=== PATIENT | female | born 1990 | race Caucasian/White ===

== ENCOUNTER 2016-08-26 09:06 | Emergency (ER) | payer MEDICAID ==
--- NOTE | 2016-08-26 11:05 | ER Document Report ---
ED General - General Chief Complaint: Rib Pain Stated Complaint: RIB PAIN Notes: Right rib pain started yesterday. Patient says that she was typing while in bed yesterday. When she finished typing, she sat up and stretched and put both arms up in the air and when she did so she felt a painful pop in the right upper quadrant, right lower rib margins anteriorly. Ever since then, it's been very painful, especially painful to breathe or take a deep breath or sneeze or move. She's never had this happen before. Has not been sick in any other way. No significant cough. No fevers. TRAVEL OUTSIDE OF THE [place] IN LAST 30 DAYS: No COUNTRY TRAVELED TO/FROM: [facility] - Related Data Allergies/Adverse Reactions: Adhesive Bandage * [Adhesive Bandage] Allergy (Unknown, Verified 08/26/16 09:15) sodium hypochlorite solution [Sodium Hypochlorite] Allergy (Unknown, Verified 09:15) Home Medications: Current Home Medications Fluoxetine HCl [Prozac] 10 mg PO DAILY 08/26/16 [History] Past Medical History - Social History Smoking Status: Never Smoker Chew tobacco use (# tins/day): No Frequency of alcohol use: Occasional Drug Abuse: None Family History: Reviewed & Not Pertinent, Other - Does not know family history, raised in foster care Patient has suicidal ideation: No Patient has homicidal ideation: No - Past Medical History Cardiac Medical History: Denies: Hx Coronary Artery Disease Pulmonary Medical History: Reports: Hx Asthma Musculoskeltal Medical History: Reports Hx Musculoskeletal Trauma Psychiatric Medical History: Reports: Hx Anxiety, Hx Depression Traumatic Medical History: Reports: Hx Fractures - Both arms and both legs and left fifth toe Past Surgical History: Reports: Hx Section. Denies: Hx Cholecystectomy - Immunizations Immunizations up to date: Yes Hx Diphtheria, Pertussis, Tetanus Vaccination: Yes - 2011 Hx Pneumococcal Vaccination: 11/05/13 Review of Systems - Review of Systems Notes: REVIEW OF SYSTEMS: CONSTITUTIONAL : Denies fever. EENT: Denies eye, ear, nose or mouth or throat pain or other symptoms. CARDIOVASCULAR: See history of present illness. RESPIRATORY: Denies cough, chest congestion, or shortness of breath. See history of present illness. GASTROINTESTINAL: Denies abdominal pain or nausea, vomiting, or diarrhea. GENITOURINARY: Denies difficulty or painful urinating, urinary frequency, blood in urine. MUSCULOSKELETAL: Denies back or neck pain. Denies joint pain or swelling. SKIN: Denies rash or skin lesions. NEUROLOGICAL: Denies LOC or altered mental status. Denies headache. Denies sensory loss or motor deficits. PSYCHIATRIC: History of anxiety and depression. ALL OTHER SYSTEMS REVIEWED AND NEGATIVE. Physical Exam - Vital signs Vitals: Temp Pulse Resp BP Pulse Ox 98.3 F 103 H 20 129/66 H 97 08/26/16 09:13 08/26/16 09:13 08/26/16 09:13 08/26/16 09:13 08/26/16 09:13 Interpretation: Normal - Notes Notes: PHYSICAL EXAMINATION: GENERAL: Well-appearing, in no acute distress. HEAD: Atraumatic, normocephalic. NECK: Normal range of motion, supple. LUNGS: Breath sounds clear and equal bilaterally. Good breath sounds bilaterally. Appears to be painful for the patient to take a deep breath. Tender to palpate along the cartilaginous margin of the lower right anterior ribs. No subcutaneous air felt. No crepitus present. HEART: Regular rate and rhythm without murmurs. ABDOMEN: Soft, slightly tender in the right upper quadrant. Certainly no guarding or rebound. BACK: No tenderness throughout entire back. EXTREMITIES: Normal range of motion without pain. No pain or swelling. Negative Homans bilaterally. NEUROLOGICAL: Normal speech, normal gait. Normal sensory, motor, and reflex exams. Awake, alert, and oriented x3. Cranial nerves normal. PSYCH: Normal mood, normal affect. SKIN: Warm, dry, no rashes. Course - Vital Signs Vital signs: Temp Pulse Resp BP Pulse Ox 98.3 F 103 H 18 129/66 H 97 08/26/16 09:13 08/26/16 09:13 08/26/16 10:45 08/26/16 09:13 08/26/16 09:13 - Diagnostic Test Radiology results interpreted by me: 08/26/16 11:47 Chest x-ray is normal. Discharge - Discharge Clinical Impression: Injury of costal cartilage Qualifiers: Encounter type: initial encounter Qualified Code(s): S29.9XXA - Unspecified injury of thorax, initial encounter Condition: Stable Disposition: HOME, SELF-CARE Additional Instructions: Costal cartilage and adjacent MUSCLE STRAIN: You have strained a muscle -- torn the fibers within the muscle. This often occurs with strenuous exertion, or during an injury that suddenly stretches the muscle. The seriousness of a strain varies. Some strains heal within days, others cause problems for months. X-rays cannot show a muscle strain. X-rays are taken only if symptoms suggest that a fracture could be present. The usual treatment of a muscle strain is rest and ice packs. Sometimes, a sling, splint, or crutches may be necessary to rest the muscle. The muscle can be used again once pain subsides. Severe strains require a special exercise and stretching program to prevent permanent stiffness and disability. Your doctor will advise you if this will be necessary. Call the doctor immediately if pain or swelling becomes severe, or if numbness or discoloration develop. USE OF TYLENOL (ACETAMINOPHEN): Acetaminophen may be taken for pain relief or fever control. It's much safer than aspirin, offering a wider range of "safe" dosages. It is safe during . Some brand names are Tylenol, Panadol, Datril, Anacin 3, Tempra, and Liquiprin. Acetaminophen can be repeated every four hours. The following are maximum recommended dosages: WEIGHT Dose Drops Elixir Chewable( 80mg) (LBS.) drprs=droppers tsp=teaspoon >89 pounds or adults 650 mg to 900 mg Acetaminophen can be repeated every four hours. Maximum dose not to exceed 4000 mg a day. These maximum recommended dosages are slightly higher than the dosages written on the product container, but these dosages are very safe and below the toxic dosage for acetaminophen. Ibuprofen Ibuprofen is an excellent, safe drug for pain control. In addition, it has potent antiinflammatory effects which are beneficial, especially in the treatment of injuries, arthritis, or tendonitis. It's best to take ibuprofen with food. Persons with ulcer disease or allergy to aspirin should notify their physician of this before taking ibuprofen. Take the medication exactly as prescribed. Don't take additional doses unless instructed to do so by your doctor. If you develop wheezing, shortness of breath, hives, faintness, stomach pain, vomiting, or dark black stools, return for re-evaluation at once. ICE PACKS: Apply ice packs frequently against the painful area. Many different schedules are recommended, such as "20 minutes on, 20 minutes off" or "one hour ice, two hours rest." If you need to work, you may need to go longer between ice treatments. You should plan to have the area ice packed AT LEAST one fourth of the time. The ice should be applied over the wrap, tape, or splint, or over a layer of cloth -- not directly against the skin. Some ice bags have a built-in cloth and can be put directly on the skin. WARM PACKS: After approximately two days, apply gentle heat (such as a heating pad or hot water bottle) for about 20 to 30 minutes about every two hours -- at least four times daily. Warmth and elevation will help you make a more rapid recovery , and will ease the pain considerably. Do not use HOT heat, and never apply heat for longer than 30 minutes. The continuous heat can invisibly damage skin and muscles -- even when no burn is seen on the surface. Damaged muscles can make you MORE sore. ORAL NARCOTIC MEDICATION: You have been given a prescription for pain control. This medication is a narcotic. It's best taken with food, as nausea can result if taken on an empty stomach. Don't operate machinery or drive within six hours of taking this medication. Do not combine this medicine with alcohol, or with any medication which can cause sedation (such as cold tablets or sleeping pills) unless you get permission from the physician. Narcotics tend to cause constipation. If possible, drink plenty of fluids and eat a diet high in fiber and fruits. Antinausea Medication You have been given a medication to suppress nausea and vomiting. This type of medication can be given as a shot, pill, or suppository. It will usually last for many hours. Pills and shots usually last six to eight hours, suppositories last about 12 hours. For the typical illness, only one or two doses of the medication may be necessary. Mild lightheadedness may occur. This type of medicine can cause drowsiness. Do not drive or operate dangerous machinery while under its influence. Do not mix with alcohol. See your doctor at once if you have muscle spasms or tightness, or uncontrollable motions (particularly of the neck, mouth, or jaw). Persistent vomiting or severe lightheadedness should also be evaluated by the physician. FOLLOW-UP CARE: If you have been referred to a physician for follow-up care, call the physician s office for an appointment as you were instructed or within the next two days. If you experience worsening or a significant change in your symptoms, notify the physician immediately or return to the Emergency Department at any time for re-evaluation. Return for reevaluation if you develop worsening pain, shortness of breath, fevers, etc. Prescriptions: Oxycodone HCl/Acetaminophen [Percocet 5-325 mg Tablet] 1 - 2 tab PO Q4HP PRN # 10 tablet PRN Reason: Promethazine HCl [Phenergan 25 mg Tablet] 1 - 2 tab PO Q6HP PRN #10 tablet PRN Reason:
[2016-08-26 11:53] VITALS: BP 97/77
== END 2016-08-26 12:03 | disposition home or self-care (01) ==
LOC: ER 09:06
DX: S29.9XXA Unspecified injury of thorax, initial encounter (principal); R07.81 Pleurodynia; R10.811 Right upper quadrant abdominal tenderness; X50.0XXA Overexertion from strenuous movement or load, initial encounter; Y93.89 Activity, other specified; J45.909 Unspecified asthma, uncomplicated; Z88.8 Allergy status to other drugs, medicaments and biological substances
CPT/HCPCS: 71020; 99283

== ENCOUNTER 2018-02-16 06:36 | Outpatient (CLI) | payer MEDICAID ==
[2018-02-16 09:18] LABS: APPEARANCE,URINE SLIGHTLY-CLOUDY; BILIRUBIN,URINE NEGATIVE (NEGATIVE); COLOR,URINE YELLOW; GLUCOSE, URINE NEGATIVE (NEGATIVE); KETONES,URINE NEGATIVE (NEGATIVE); LEUKOCYTE ESTERASE,URINE NEGATIVE (NEGATIVE); NITRITE,URINE NEGATIVE (NEGATIVE); PROTEIN,URINE NEGATIVE (NEGATIVE); URINE SPECIFIC GRAVITY 1.023; UROBILINOGEN,URINE NEGATIVE mg/dL (<2.0)
[2018-02-16 09:39] LABS: URINE AMPHETAMINES SCREEN NEGATIVE; URINE BARBITURATES SCREEN NEGATIVE; URINE BENZODIAZEPINES SCREEN NEGATIVE; URINE COCAINE SCREEN NEGATIVE; URINE METHADONE SCREEN NEGATIVE; URINE PHENCYCLIDINE SCREEN NEGATIVE
--- NOTE | 2018-02-16 09:47 | RADIOLOGY REPORT (SQ) ---
EXAM DESCRIPTION: U/S PROFILE W/O STRESS COMPLETED DATE/TIME: 02/16/2018 9:32 am REASON FOR STUDY: BPP-38.3 WEEKS IUP- WELLBEING COMPARISON: None. TECHNIQUE: Limited deleon-scale realtime and static images of the fetus to measure specified parameter s. LIMITATIONS: None. FINDINGS: HEART RATE: 153 beats per minute. DEE DEE: 8.5 cm. BREATHING MOVEMENT: 2 points. MOVEMENT: 2 points. POSTURE AND TONE: 2 points. QUALITATIVE DEE DEE: 2 points. OTHER: No other significant finding. IMPRESSION: BIOPHYSICAL PROFILE: 02/23. Trimester of : Third - 28 weeks to delivery COMMENT: BREATHING MOVEMENTS: 2 POINTS: PRESENT 0 POINTS: ABSENT MOTION: 2 POINTS: PRESENT 0 POINTS: ABSENT TONE: 2 POINTS: PRESENT 0 POINTS: ABSENT AMNIOTIC FLUID VOLUME: 2 POINTS: LARGEST POCKET GREATER THAN 2 CM DEPTH. 0 POINTS: NO POCKET OF 2 CM. TECHNICAL DOCUMENTATION: JOB ID: [id number] [employer]- All Rights Reserved Reading location - IP/workstation name: [email or web address]
[2018-02-16 09:51] LABS: URINE MARIJUANA (THC) SCREEN UNCONFIRMED POSITIVE
== END 2018-02-16 10:46 | disposition home or self-care (01) ==
LOC: LC 06:36
PROVIDERS: ATTEND Obstetrics & Gynecology
PROC: 4A1HXCZ Monitoring of Products of Conception, Cardiac Rate, External Approach (ICD-10-PCS; principal; 2018-02-16)
DX: O36.8130 Decreased fetal movements, third trimester, not applicable or unspecified (principal); Z3A.38 38 weeks gestation of pregnancy
CPT/HCPCS: 76819; 80307; 81005; 94760

== ENCOUNTER 2018-02-21 05:02 | Inpatient (IN) | payer MEDICAID ==
[2018-02-18 10:40] LABS: APPEARANCE,URINE SLIGHTLY-CLOUDY; BILIRUBIN,URINE NEGATIVE (NEGATIVE); COLOR,URINE YELLOW; GLUCOSE, URINE NEGATIVE (NEGATIVE); KETONES,URINE NEGATIVE (NEGATIVE); LEUKOCYTE ESTERASE,URINE NEGATIVE (NEGATIVE); NITRITE,URINE NEGATIVE (NEGATIVE); PROTEIN,URINE NEGATIVE (NEGATIVE); URINE SPECIFIC GRAVITY 1.015; UROBILINOGEN,URINE NEGATIVE mg/dL (<2.0)
[2018-02-18 10:54] LABS: ABSOLUTE BASOPHILS # (AUTO) 0.1 10^3/uL (0.0-0.2); ABSOLUTE EOSINOPHILS # (AUTO) 0.1 10^3/uL (0.0-0.6); ABSOLUTE LYMPHOCYTES (AUTO) 3.8 10^3/uL (0.5-4.7); ABSOLUTE MONOCYTES (AUTO) 0.7 10^3/uL (0.1-1.4); ABSOLUTE NEUT (AUTO) 9.5 10^3/uL (1.7-8.2); BASOPHILS % (AUTO) 0.6 % (0-2); EOSINOPHILS % (AUTO) 0.7 % (0-6); HEMOGLOBIN 12.9 g/dL (12.0-15.5); LYMPHOCYTES % (AUTO) 26.8 % (13-45); MEAN CORPUSCULAR HEMOGLOBIN 28.8 pg (27.0-33.4); MEAN CORPUSCULAR HGB CONC 33.2 g/dL (32.0-36.0); MEAN CORPUSCULAR VOLUME 87 fl (80-97); MONOCYTES % (AUTO) 4.6 % (3-13); PLATELET COUNT 304 10^3/uL (150-450); RED BLOOD COUNT 4.49 10^6/uL (3.72-5.28); RED CELL DISTRIBUTION WIDTH 13.6 % (11.5-14.0); SEGMENTED NEUTROPHILS % (AUTO) 67.3 % (42-78); TOTAL CELLS COUNTED % (AUTO) 100 %; WHITE BLOOD COUNT 14.1 10^3/uL (4.0-10.5)
[2018-02-18 10:57] LABS: URINE AMPHETAMINES SCREEN NEGATIVE; URINE BARBITURATES SCREEN NEGATIVE; URINE BENZODIAZEPINES SCREEN NEGATIVE; URINE COCAINE SCREEN NEGATIVE; URINE MARIJUANA (THC) SCREEN NEGATIVE; URINE METHADONE SCREEN NEGATIVE; URINE PHENCYCLIDINE SCREEN NEGATIVE
[~2018-02-21 05:02] MED LIST: CEFAZOLIN 2 GM/D5W RTU 2 GM/50 ML RTUPB IV PRN; LACTATED RINGERS 1000 ML IV PRN; LIDOCAINE 0.5% INJ-PF (5 MG/ML) 50 ML SDV SUBCUT PRN; RINGERS SOLUTION,LACTATED 1,000 ML IV PRN
[2018-02-21] MEDS ORDERED: CEFAZOLIN 1 GM/D5W RTU 2 GM/100 ML RTUPB IV ONE (06:22)
[2018-02-21] MEDS ORDERED: OXYTOCIN 10 UNIT/ML VIAL ONE (07:25)
[2018-02-21] MEDS ORDERED: EPHEDRINE SULFATE INJ 50 MG/1 ML AMPULE ONE (07:25)
[2018-02-21] MEDS ORDERED: ONDANSETRON HCL INJ/PF 4 MG/2 ML SDV ONE (07:25)
[2018-02-21] MEDS ORDERED: FENTANYL CITRATE INJ/PF 100 MCG/2 ML AMPUL ONE (07:26)
[2018-02-21] MEDS ORDERED: MIDAZOLAM 2 MG/2 ML INJ ONE (07:26)
[2018-02-21] MEDS ORDERED: BUPIVACAINE HCL/DEX-WATER/PF 15 MG/2 ML AMPULE ONE (07:45)
[2018-02-21] MEDS ORDERED: FENTANYL CITRATE INJ/PF 100 MCG/2 ML AMPUL IV PRN ×3 (08:12)
[2018-02-21] MEDS ORDERED: MEPERIDINE HCL/PF INJ 25 MG/1 ML DISP.SYRIN IV PRN (08:12)
[2018-02-21] MEDS ORDERED: DIPHENHYDRAMINE HCL 50 MG/ML VIAL IV PRN (08:12)
[2018-02-21] MEDS ORDERED: PROMETHAZINE HCL INJ 25 MG/1 ML VIAL IV PRN ×2 (08:12→08:24)
[2018-02-21] MEDS ORDERED: MORPHINE SULFATE 10 MG/ML INJ IM PRN (08:24)
[2018-02-21] MEDS ORDERED: OXYTOCIN/NORMAL SALINE 20 UNIT/1,000 ML RTUINJ IV PRN (08:24)
[2018-02-21] MEDS ORDERED: ACETAMINOPHEN 325 MG TABLET PO PRN (08:24)
[2018-02-21] MEDS ORDERED: OXYCODONE-ACETAMINOPHEN 5-325 MG TABLET PO PRN (08:24)
[2018-02-21] MEDS ORDERED: DIPH/PERTUSS(ACELL)/TETANUS VAC/PF 0.5 ML SYR (>=10YO) IM PRN (08:24)
[2018-02-21] MEDS ORDERED: ACETAMINOPHEN 100 ML IV PRN (08:24)
[2018-02-21] MEDS ORDERED: SIMETHICONE 80 MG TAB.CHEW PO PRN (08:24)
[2018-02-21] MEDS ORDERED: MEASLES,MUMPS&RUBELLA VACC/PF 0.5 ML VIAL SUBCUT PRN (08:24)
--- NOTE | 2018-02-21 08:28 | PDOC DELIVERY SUMMARY ---
Delivery Summary - Maternal Hx : II LOUISE: 02/28/18 Risk Factors: Previous Ruptured Membranes: AROM Time of Rupture: 08:01 Fluids: Clear - Delivery Presentation: Vertex Heart Rate Monitoring: Done Pre-Operatively Support Person Present: Yes Location: OR : Scheduled, Repeat Placenta: Within Normal Limits Delivery of Placenta Date: 02/21/18 Delivery of Placenta Time: 08:02 - Medications Type of Anesthesia:: Spinal - Assess and Care Baby 1 Female Delivery of Infant Date: 02/21/18 Delivery of Infant Time: 08:01 Preprinted Number On Band: [id number] Skin to Skin: Yes Skin to Skin (Mins): 2 [facility] Person[facility] Operative Supervisor: JUAREZ LANIER RN: KIMBERLY GRACE MD: DENY LUONG
[2018-02-21] MEDS ORDERED: ACETAMINOPHEN 1,000 MG/100 ML RTUPB IV ONE (08:30)
[2018-02-21] MEDS ORDERED: OXYTOCIN/NORMAL SALINE 20 UNIT/1,000 ML RTUINJ ONE (08:30)
[2018-02-21] MEDS ORDERED: DIPHENHYDRAMINE HCL 50 MG/ML VIAL ONE (08:43)
[2018-02-21] MEDS: DOCUSATE SODIUM 100 MG CAPSULE PO SCH ×2 (11:45→18:11)
[2018-02-21] MEDS: PRENATAL VITAMIN W DHA CAPSULE PO SCH (11:45)
[2018-02-21] MEDS: KETOROLAC TROMETHAMINE INJ/PF 30 MG/1 ML SDV IV SCH ×2 (13:06→22:15)
--- NOTE | 2018-02-21 13:26 | OPERATIVE REPORT E ---
Operative Report NAME: LYLA SANCHEZ : 1990 AGE: 27Y DATE OF SURGERY: 03/03/2018 ROOM: 222 PREOPERATIVE DIAGNOSES: 1. IUP AT TERM, REPEAT . 2. HISTORY OF HERPES SIMPLEX VIRUS. POSTOPERATIVE DIAGNOSES: 1. IUP AT TERM, REPEAT . 2. HISTORY OF HERPES SIMPLEX VIRUS. OPERATION: Repeat low transverse . Delivery of viable female, Apgars of 9 and 9, weight 6 pounds. SURGEON: Stefanie LUONG M.D. ANESTHESIA: Spinal. TISSUE REMOVED OR ALTERED: Placenta. ESTIMATED BLOOD LOSS: Less than 100 mL. PROCEDURE: Patient was placed in a supine position, rolled onto her right side, prepped and draped in sterile fashion. Incision extended through the subcutaneous tissue and fascia with sharp dissection. The Parietal peritoneum was entered with blunt dissection. Uterus nicked in midline and extended bilaterally with blunt dissection. The infant was then delivered through the uterine incision. Nose and mouth suctioned with a bulb syringe. Cord was clamped. Infant was passed from the table. Placenta was manually extracted. Uterus was closed in 2 layers, the first was a running stitch using 0 Vicryl, the second a Lembert stitch imbricating the first layer. There was some bleeding in the right angle. It was controlled with [id number] sutures of 0 Vicryl. Hemostasis was noted. The fascia was closed with 0 Vicryl, and the skin was closed with subcutaneous absorbable jazmyne. Patient tolerated it well and was taken to recovery in good condition, to nursery in good condition. DICTATING PHYSICIAN: Stefanie LUONG M.D. [id number] PHY#: [id number] ID: [id number] JOB#: [id number] ACCT: [id number] cc:Stefanie LUONG M.D. >
[2018-02-21] MEDS ORDERED: DIPHENHYDRAMINE HCL 50 MG/ML VIAL IV ONE (15:43)
[2018-02-21] MEDS: OXYCODONE-ACETAMINOPHEN 5-325 MG TABLET PO PRN ×2 (15:50→22:15)
[2018-02-22] MEDS: OXYCODONE-ACETAMINOPHEN 5-325 MG TABLET PO PRN ×3 (04:49→22:26)
[2018-02-22] MEDS: KETOROLAC TROMETHAMINE INJ/PF 30 MG/1 ML SDV IV SCH (06:14)
[2018-02-22 07:14] LABS: HEMATOCRIT 34.4 % (36.0-47.0); HEMOGLOBIN 11.7 g/dL (12.0-15.5); MEAN CORPUSCULAR HEMOGLOBIN 29.1 pg (27.0-33.4); MEAN CORPUSCULAR HGB CONC 33.8 g/dL (32.0-36.0); MEAN CORPUSCULAR VOLUME 86 fl (80-97); PLATELET COUNT 258 10^3/uL (150-450); RED CELL DISTRIBUTION WIDTH 13.6 % (11.5-14.0); WHITE BLOOD COUNT 15.7 10^3/uL (4.0-10.5)
--- NOTE | 2018-02-22 09:00 | PDOC PROGRESS REPORT ---
Subjective Progress Note for:: 02/22/18 Subjective:: doing well. pain controlled with oral pain meds. tolerating regular diet and ambulating. minimal lochia Reason For Visit: /INDUCTION Physical Exam - Physical Exam Vital Signs: Temp Pulse Resp BP Pulse Ox 97.9 F 82 18 115/66 97 02/22/18 07:31 02/22/18 07:31 02/22/18 07:31 02/22/18 07:31 02/22/18 07:31 Intake & Output 02/21/18 02/22/18 02/23/18 06:59 06:59 06:59 Intake Total 2068 Output Total 1200 Balance 868 Weight 87.997 kg 90.8 kg General appearance: PRESENT: no acute distress, cooperative GI/Abdominal exam: PRESENT: soft - incision c/d/intact with minimal staining on dressing - Obstetrical Exam Fundal Height: 1/u - 2/u Result Laboratory Results: 02/22/18 07:01 02/22/18 07:01 WBC 15.7 H RBC 4.00 Hgb 11.7 L Hct 34.4 L MCV 86 MCH 29.1 MCHC 33.8 RDW 13.6 Plt Count 258 Assessment & Plan - Inpatient Certification Based on my medical assessment, after consideration of the patient's comorbidities, presenting symptoms, or acuity I expect that the services needed warrant INPATIENT care.: Yes I certify that my determination is in accordance with my understanding of Medicare's requirements for reasonable and necessary INPATIENT services [42 CFR 412.3e].: Yes Medical Necessity: Need for Pain Control - Plan Summary Plan Summary: delivered by c/section yesterday. Will be ok for discharge likely tomorrow. doing well with a normal post operative course
[2018-02-22] MEDS: PRENATAL VITAMIN W DHA CAPSULE PO SCH (10:25)
[2018-02-22] MEDS: DOCUSATE SODIUM 100 MG CAPSULE PO SCH ×2 (10:25→18:42)
[2018-02-22] MEDS ORDERED: DIPHENHYDRAMINE HCL 25 MG CAPSULE ONE (10:40)
[2018-02-22] MEDS ORDERED: DIPHENHYDRAMINE HCL 25 MG CAPSULE PO PRN (10:42)
[2018-02-22] MEDS: IBUPROFEN 800 MG TABLET PO SCH ×2 (13:29→18:42)
[2018-02-23] MEDS: IBUPROFEN 800 MG TABLET PO SCH ×3 (00:08→13:02)
[2018-02-23] MEDS: OXYCODONE-ACETAMINOPHEN 5-325 MG TABLET PO PRN (08:56)
[2018-02-23] MEDS: DOCUSATE SODIUM 100 MG CAPSULE PO SCH (09:00)
[2018-02-23] MEDS: PRENATAL VITAMIN W DHA CAPSULE PO SCH (09:00)
--- NOTE | 2018-02-23 11:01 | PDOC DISCHARGE SUMMARY ---
Final Diagnosis Discharge Date: 02/23/18 - Final Diagnosis (1) Status post repeat low transverse section Is this a current diagnosis for this admission?: Yes Discharge Data - Discharge Medication Prescriptions: Oxycodone HCl/Acetaminophen [Percocet 5-325 mg Tablet] 1 tab PO Q4HP PRN #30 tablet PRN Reason: Ibuprofen [Motrin 800 mg Tablet] 800 mg PO Q8 #90 tablet Home Medications: Albuterol Sulfate [Proair HFA] 1 - 2 puff IH Q4 PRN 02/17/18 Ibuprofen [Motrin 800 mg Tablet] 800 mg PO Q8 #90 tablet 02/23/18 Oxycodone HCl/Acetaminophen [Percocet 5-325 mg Tablet] 1 tab PO Q4HP PRN #30 tablet 02/23/18 Reason(s) for Admission: Ceasarean Section-Repeat Intrapartum Procedure(s): : Low Cervical, Transverse - Diagnosis Test Laboratory: Temp Pulse Resp BP Pulse Ox 97.8 F 84 17 108/55 L 98 02/23/18 08:14 02/23/18 08:14 02/23/18 08:14 02/23/18 08:14 02/23/18 08:14 02/18/18 02/18/18 02/22/18 09:20 09:25 07:01 RBC 4.49 4.00 Hgb 12.9 11.7 L Hct 39.0 34.4 L Urine Opiates Screen NEGATIVE - Discharge information/Instructions Discharge Activity: Activity As Tolerated Discharge Diet: Regular Disposition: HOME, SELF-CARE Follow up with: [facility] in: 1
[2018-02-23 12:51] VITALS: BP 108/55
== END 2018-02-23 14:10 | disposition home or self-care (01) | DRG 765 ==
LOC: 2S 05:02
PROVIDERS: ADMIT Obstetrics & Gynecology Gynecology; ATTEND Obstetrics & Gynecology Gynecology
PROC: 4A1HXCZ Monitoring of Products of Conception, Cardiac Rate, External Approach (ICD-10-PCS; 2018-02-21)
PROC: 10D00Z1 Extraction of Products of Conception, Low, Open Approach (ICD-10-PCS; principal; 2018-02-21 07:45)
PROC: 3E0234Z Introduction of Serum, Toxoid and Vaccine into Muscle, Percutaneous Approach (ICD-10-PCS; 2018-02-23)
DX: O34.211 Maternal care for low transverse scar from previous cesarean delivery (principal); O98.32 Other infections with a predominantly sexual mode of transmission complicating childbirth; A60.00 Herpesviral infection of urogenital system, unspecified; Z3A.39 39 weeks gestation of pregnancy; Z37.0 Single live birth; Z23 Encounter for immunization
CPT/HCPCS: 1961; 36415; 59025; 80307; 81001; 85025; 85027; 86850; 86900; 86901; 90715; 94799; J0131; J1200; J1885; J2250; J2270; J2405; J2590; J3010; J3490

== ENCOUNTER 2019-02-05 21:23 | Emergency (ER) | payer MEDICAID ==
[2019-02-06] MEDS ORDERED: CETIRIZINE 10 MG TABLET PO ONE (00:37)
[2019-02-06] MEDS ORDERED: METHYLPREDNISOLONE INJ 125 MG/2 ML SDV IM ONE (00:37)
[2019-02-06] MEDS ORDERED: FAMOTIDINE 20 MG TABLET PO ONE (00:37)
--- NOTE | 2019-02-06 00:43 | ER Document Report ---
HPI - HPI Time Seen by Provider: 02/06/19 00:13 Pain Level: 5 Context: Patient is a 28-year-old female who presents to the emergency department with the chief complaint of allergic reaction. Patient states yesterday she was sitting in a chair in a car dealership when she felt discomfort to the back of the right calf. Patient states that appeared initially that she was bitten by something she developed itching and redness. Patient states earlier today she developed blisters around the site and hives to the right lower and upper leg posteriorly. Patient states she has had itching. Patient states she is allergic to insect bites. Patient has used a topical Benadryl without relief. Patient states the blistering and pain continued to get worse. Patient denies any significant past medical history or surgical history. Patient states that the wounds appear warm to touch and irritated. - REPRODUCTIVE Reproductive: DENIES: : Past Medical History - General Information source: Patient - Social History Smoking Status: Never Smoker Family History: Reviewed & Not Pertinent, Other - Does not know family history, raised in foster care - Past Medical History Cardiac Medical History: Reports: None Denies: Hx Coronary Artery Disease Pulmonary Medical History: Reports: Hx Asthma EENT Medical History: Reports: None Neurological Medical History: Reports: None Endocrine Medical History: Reports: None Renal/ Medical History: Reports: None. Denies: Hx Peritoneal Dialysis Malignancy Medical History: Reports: None GI Medical History: Reports: None Musculoskeletal Medical History: Reports Hx Musculoskeletal Trauma Skin Medical History: Reports None Psychiatric Medical History: Reports: Hx Anxiety, Hx Depression Traumatic Medical History: Reports: Hx Fractures - Both arms and both legs and left fifth toe Infectious Medical History: Reports: None Past Surgical History: Reports: Hx Section. Denies: Hx Cholecystectomy - Immunizations Immunizations up to date: Yes Hx Diphtheria, Pertussis, Tetanus Vaccination: Yes - 2011 Hx Pneumococcal Vaccination: 11/05/13 Vertical Provider Document - CONSTITUTIONAL Agree With Documented VS: Yes Exam Limitations: No Limitations General Appearance: No Apparent Distress Notes: GENERAL: Well-appearing, well-nourished and in no acute distress. HEAD: Atraumatic, normocephalic. EYES: Pupils equal round and reactive to light, extraocular movements intact, sclera anicteric, conjunctiva are normal. ENT: TMs normal, nares patent, oropharynx clear without exudates. Moist mucous membranes. NECK: Normal range of motion, supple without lymphadenopathy or JVD. LUNGS: Breath sounds clear to auscultation bilaterally and equal. No wheezes r ales or rhonchi. HEART: Regular rate and rhythm without murmurs, rubs or gallops. ABDOMEN: Soft, nontender, normoactive bowel sounds. No guarding, no rebound. No masses appreciated. BACK: No cervical, thoracic, lumbar midline tenderness. No saddle anesthesia, normal distal neurovascular exam. GENITOURINARY: Deferred. EXTREMITIES: Normal range of motion, no pitting or edema. No clubbing or cyan osis. NEUROLOGICAL: Cranial nerves II through XII grossly intact. Normal speech, normal gait. PSYCH: Normal mood, normal affect. SKIN: Multiple large wheals noted to the posterior right leg - to the calf and thigh, small pustules noted inside the wheal present on the right calf. Wheals are warm to touch and tender with palpation. The wheals are present to the right lower extremity only. - INFECTION CONTROL TRAVEL OUTSIDE OF THE [place] IN LAST 30 DAYS: No COUNTRY TRAVELED TO/FROM: [facility] Course - Re-evaluation Re-evalutation: 02/06/19 Patient was medicated for allergic reaction. Patient states she does not want to stay after receiving the medication as she feels like it is safe to go home and the pain, rash has not worsened since arriving to the emergency department. I did provide the patient with Keflex to cover for the surrounding cellulitis, and antihistamine and steroids. I did inform the patient to seek care immediately if symptoms worsen or start to spread or she develops a fever, difficulty breathing or shortness of breath. - Vital Signs Vital signs: Temp Pulse Resp BP Pulse Ox 99 F 96 18 129/71 H 98 02/05/19 21:55 02/05/19 21:55 02/05/19 21:55 02/05/19 21:55 02/05/19 21:55 Discharge - Discharge Clinical Impression: Localized pruritus, Wheal Allergic reaction Qualifiers: Encounter type: initial encounter Qualified Code(s): T78.40XA - Allergy, unspecified, initial encounter Condition: Stable Disposition: HOME, SELF-CARE Additional Instructions: Today you were seen in the emergency department for possible allergic reaction after being potentially stung or bit by an insect. It does look like you are having a localized reaction to the back of the right leg with a surrounding cellulitis. I will treat the cellulitis with an oral antibiotic in which she will take until fully completed. You are also being placed on a oral steroid which will help with the inflammation. We did give you a dose of Zyrtec which is an antihistamine. This will help with the itching. Please return to the emergency department if the rash worsens, appears infected, you develop fevers, difficulty breathing, spreading redness, swollen glands or any other concerning signs or symptoms. Allergic Contact Dermatitis You have a local allergic reaction, called contact dermatitis. This an allergy to something in contact with your skin. Poison tammie, jewelry, soaps, perfumes, and chemicals are common causes. Typically, an itchy rash develops a few days after the exposure. If the reaction is severe, blisters may develop. Two to three weeks may be required for healing. Generally, treatment consists of: (1) a thorough washing with soap to remove the offending substance, (2) application of a cortisone cream, and (3) antihistamines for itching. If the reaction is particularly severe, further measures may be required. These can include soaking in epsom salts or Priscila's solution, and oral cortisone medications. Call the doctor if the rash worsens despite treatment, or if signs of infection occur such as spreading redness, red streaks, swollen glands, swelling, or fever. Prescriptions: Cephalexin Monohydrate [Keflex 500 mg Capsule] 500 mg PO Q6H 7 Days capsule Cetirizine HCl [Zyrtec 10 mg Tablet] 1 tab PO DAILY #10 tablet Prednisone [Deltasone 10 mg Tablet] 10 mg PO ASDIR PRN #21 tablet PRN Reason: Referrals: BIRDIE SOTO MD [Primary Care Provider] - Follow up as needed
[2019-02-06 01:22] VITALS: BP 124/73
== END 2019-02-06 01:22 | disposition home or self-care (01) ==
LOC: ER 21:23
DX: T78.40XA Allergy, unspecified, initial encounter (principal); L50.9 Urticaria, unspecified; L03.90 Cellulitis, unspecified; J45.909 Unspecified asthma, uncomplicated
CPT/HCPCS: 99283; 96374; J3490 ×2; J2930